=== PATIENT | female | born 1965 | race Caucasian/White ===

== ENCOUNTER 2022-02-24 02:28 | Inpatient (IN) | payer OTHER ==
[~2022-02-24] VITALS: Ht 177.8 cm; Wt 108.4 kg
--- NOTE | 2022-02-24 02:45 | NUR ---
BIBSELF C/O ABD PAIN STARTED AT 9 PM, N/V. PATIENT IS AAOX4. ABLE TO MAKE NEEDS KNOWN. VOMITED 2X. PLACED COMFORTABLY IN BED. ATTACHED TO MONITOR AND VITALS CHECKED.
[2022-02-24] MEDS ORDERED: ONDANSETRON HCL/PF 4 MG/2 ML VIAL IVP ONE (03:00)
[2022-02-24] MEDS ORDERED: MORPHINE SULFATE INJ 2 MG/ML DISP.SYRIN IV ONE (03:00)
[2022-02-24] MEDS ORDERED: IV NS 0.9% 1,000 ML BAG IV ONE (03:00)
--- NOTE | 2022-02-24 03:15 | NUR ---
PATIENT BROUGHT TO CT DEPT
[2022-02-24] MEDS ORDERED: ONDANSETRON HCL/PF 4 MG/2 ML VIAL ONE ×2 (03:36→10:47)
[2022-02-24] MEDS ORDERED: MORPHINE SULFATE INJ 4 MG/ML DISP.SYRIN ONE (03:36)
--- NOTE | 2022-02-24 03:52 | NUR ---
IV CANNULA G20 INSERTED ON RIGHT AC. BLOOD DRAWN AND SENT TO LAB
[2022-02-24 04:18] LABS: BASOPHILS % (AUTO) 0.5 % (0.0-2.0); EOSINOPHILS % (AUTO) 2.8 % (0.0-6.0); LYMPHOCYTES # (AUTO) 0.8 K/uL (0.8-4.8); LYMPHOCYTES % (AUTO) 10.2 % (20.0-44.0); MEAN CORPUSCULAR HGB CONC 32 g/dl (31.0-36.0); MEAN CORPUSCULAR VOLUME 96 fL (82-100); MONOCYTES # (AUTO) 0.6 K/uL (0.1-1.30); MONOCYTES % (AUTO) 6.7 % (2.0-12.0); NEUTROPHILS # (AUTO) 6.6 K/uL (1.8-8.9); NEUTROPHILS % (AUTO) 79.8 % (43.0-81.0); PLATELET COUNT (AUTO) 332 K/uL (150-450); RED BLOOD CELL COUNT(AUTO) 2.13 MIL/uL (4.0-5.2); WHITE BLOOD COUNT (AUTO) 8.2 K/uL (4.3-11.0)
[2022-02-24 04:28] LABS: HEMATOCRIT 20 % (33-45)
[2022-02-24 04:29] LABS: HEMOGLOBIN 6.5 g/dL (11.5-14.8)
[2022-02-24 04:34] LABS: ALANINE AMINOTRANSFERASE 18 U/L (12-78); ALBUMIN 3.4 g/dL (3.4-5.0); ALKALINE PHOSPHATASE 118 U/L (46-116); ASPARTATE AMINOTRANSFERASE 21 U/L (15-37); BILIRUBIN,DIRECT 0.1 mg/dL (0.0-0.2); BILIRUBIN,TOTAL 0.3 mg/dL (0.2-1.0); CALCIUM, SERUM 8.5 mg/dL (8.5-10.1); CARBON DIOXIDE 22 mmol/L (21-32); CHLORIDE 108 mmol/L (98-107); CREATININE 3.1 mg/dL (0.6-1.3); GLUCOSE 150 mg/dL (74-106); LIPASE 225 U/L (73-393); POTASSIUM 5.1 mmol/L (3.5-5.1); SODIUM SERUM 140 mmol/L (136-145); TOTAL PROTEIN, SERUM 7.1 g/dL (6.4-8.2); UREA NITROGEN, BLOOD 25 mg/dL (7-18)
--- NOTE | 2022-02-24 04:50 | NUR ---
URINE SPECIMEN SENT.
[2022-02-24 05:37] LABS: BILIRUBIN,URINE NEGATIVE (NEGATIVE); COLOR,URINE YELLOW (YELLOW); LEUKOCYTE ESTERASE ,URINE MODERATE (NEGATIVE); NITRITE, URINE NEGATIVE (NEGATIVE); PROTEIN,URINE TRACE mg/dl (NEGATIVE); UGLUCOSE NEGATIVE (NEGATIVE); UROBILINOGEN,URINE 0.2 EU/dL (0.2)
[2022-02-24 07:08] LABS: BACTERIA,URINE Few /HPF (None Seen); SQUAMOUS EPITHELIAL CELL,UR Moderate /HPF (None Seen)
--- NOTE | 2022-02-24 07:41 | NUR ---
REPORT GIVEN TO CIARA BALDERAS
[2022-02-24] MEDS ORDERED: Z GUARD REMEDY 4 OZ OINT TP PRN (08:30)
[2022-02-24] MEDS ORDERED: ONDANSETRON HCL/PF 4 MG/2 ML VIAL IVP PRN (08:30)
[2022-02-24] MEDS ORDERED: MAGNESIUM HYDROXIDE 30 ML UDC PO PRN (08:30)
[2022-02-24] MEDS ORDERED: MAG HYDROX/AL HYDROX/SIMETH 30 ML UDC PO PRN (08:30)
[2022-02-24] MEDS ORDERED: QUET25TA PO (08:57)
[2022-02-24] MEDS ORDERED: LAMO100T17 PO (08:57)
[2022-02-24] MEDS ORDERED: APIX5TAB PO (08:57)
[2022-02-24] MEDS ORDERED: DEXTROSE 50%-WATER 50 ML DISP.SYRIN IV PRN (09:00)
[2022-02-24] MEDS ORDERED: CEFTRIAXONE 1 G in IV D5W 50 ML IV SCH (09:00)
[2022-02-24] MEDS ORDERED: INSULIN REGULAR, HUMAN 100 UNIT/ML 3 ML VIAL SQ PRN (09:00)
[2022-02-24 09:16] LABS: LYMPHOCYTES % (MANUAL) 11 % (16-48); MONOCYTES % (MANUAL) 4 % (0-11.0); NEUTROPHILS % (MANUAL) 85 (42-76)
[2022-02-24 10:01] LABS: IRON, SERUM 23 ug/dl (50-175); TOTAL IRON BINDING CAPACITY 238 ug/dl (250-450)
--- NOTE | 2022-02-24 10:12 | NUR ---
GOT BED 304-2
[2022-02-24 10:13] LABS: FERRITIN 55 ng/mL (8-388)
--- NOTE | 2022-02-24 10:45 | NUR ---
REPORT GIVEN TO VERENICE URBINA FOR ROSIO
[2022-02-24] MEDS ORDERED: PANTOPRAZOLE 40 MG VIAL ONE (10:47)
[2022-02-24] MEDS: PANTOPRAZOLE 40 MG VIAL IV SCH ×2 (10:58→16:46)
--- NOTE | 2022-02-24 11:03 | NUR ---
TRANSFERRED TO BED 304-2 IN STABLE CONDITION
--- NOTE | 2022-02-24 11:15 | NUR ---
RN NOTE RECEIVED PT FROM ER ON GURDAI. SHERRIE ENDORSED TRANSFER REPORT. PT CAN MAKE NEEDS KNOWN. PT AWAKE, A/OX4. NO SIGNS OF RESPIRATORY DISTRESS OR SOB NOTED. ON RA. TELE READING SR 63. IV IN RIGHT AC 20G INTACT AND PATENT. PT CURRENTLY STATES SHE HAS PAIN IN ABDOMEN 01/25. WILL ADMIN PAIN MEDICATION. SAFETY CHECKS IN PLACE: BED LOCKED, BED LOWEST POSITION, SIDE RAILS X2, CALL LIGHT WITHIN REACH. WILL CONTINUE TO MONITOR.
[2022-02-24] MEDS: CEFTRIAXONE 2 G in IV D5W 100 ML IV SCH (11:38)
[2022-02-24] MEDS: MORPHINE SULFATE INJ 4 MG/ML DISP.SYRIN IV PRN ×2 (11:39→16:45)
[2022-02-24] MEDS: BLOOD SUGAR DIAGNOSTIC 1 EACH STRIP IN SCH ×3 (12:01→22:00)
[2022-02-24 13:07] VITALS: BP 117/62
[2022-02-24 14:56] VITALS: BP 113/58
[2022-02-24 15:25] VITALS: BP 106/59
[2022-02-24 16:31] VITALS: BP 116/66
--- NOTE | 2022-02-24 18:41 | NUR ---
RN CLOSING NOTE PT IN BED AWAKE. A/OX4. NO SIGNS OF RESPIRATORY DISTRESS OR SOB NOTED. STABLE ON RA. TELE MONITOR READING SR 87. IV RIGHT AC 20G INTACT AND PATENT. BLOOD TRANSFUSION HAS ENDED, NO TRANSFUSION REACTION. NO C/O PAIN AT THIS TIME, CONTROLLED WITH LAST DOSE OF MORPHINE. PT CALM AND COOPERATIVE. ALL SCHEDULED MEDS GIVEN. ALL NEEDS ATTENDED TO. SAFETY CHECKS IN PLACE: BED LOCKED, BED IN LOWEST POSITION, CALL LIGHT WITHIN REACH. WILL ENDORSE TO SUPERVISOR POLICY CHANGE CLERKS NURSE FOR ROSIO.
--- NOTE | 2022-02-24 19:48 | NUR ---
SECURITY GUARDS DISPATCHER OPENING NOTES: RECEIVED PATIENT AWAKE IN BED, BED IN LOW POSITION CALL LIGHTS WITHIN REACH, NO COMPLAIN OF PAIN AND DISCOMFORT AT THIS TIME, ON ROOM AIR SATURATING WELL,NO SOB WAS OBSERVED, PATIENT IS A/O4 AMBULATORY WITH SUPERVISION, REMIND PATIENT TO USE CALL LIGHTS WHEN NEEDED ASSISTANCE, IV LINE AT RAC#20SL, ON TELE [id number] NO SYMPTOMS WAS OBSERVED, , PATIENT KEPT CLEAN AND DRY ALL NEEDS MET, WILL CONTINUE TO MONITOR.
[2022-02-24 20:00] VITALS: BP 120/69
[2022-02-24] MEDS ORDERED: diphenhydrAMINE HCL 50 MG/ML VIAL IV ONE (20:30)
[2022-02-24] MEDS: ACETAMINOPHEN 325 MG TABLET PO PRN (20:33)
--- NOTE | 2022-02-24 20:42 | NUR ---
RN NOTES: PATIENT WAS NOTED WITH GENERALIZED REDNESS AND COMPLAINS OF ITCHINESS, FEVER AT 101, O2 SATURATION AT 93% ON ROOM AIR, PATIENT IS S/P BLOOD TRANSFUSION, FINISHED AT 1759, CALLED LYNNETTE COOL AND ORDERED BENADRYL 25MG IV PUSH ONE TIME, AND MONITOR, NOTED AND CARRY OUT, TYLENOL 650MG PRN FOR FEVER, GIVEN, OBSERVED PATIENT BY INITIALLY DRINKING WATER NO DIFFICULTY OF SWALLOWING WAS OBSERVED, ICE PACK GIVEN ON BILATERAL ARMPIT, TOLD KIARA CARLTON TO GIVE SPONGE BATH FOR FEVER, ONGOING WILL CONTINUE TO MONITOR AND TO CHECK V/S AFTER 30 MINUTES FOR INTERVENTIONS RESPONSE., WILL CONTINUE TO MONITOR.
[2022-02-24] MEDS: ZOLPIDEM TARTRATE 5 MG TABLET PO PRN (22:36)
--- NOTE | 2022-02-24 22:50 | NUR ---
RN NOTES; BLOOD SUGAR -99 NO INSULIN GIVEN PER SLIDING SCALE
[2022-02-25] VITALS: BP 116/67
[2022-02-25 00:04] VITALS: BP 116/67
[2022-02-25] MEDS ORDERED: FAMOTIDINE/PF INJ 20 MG/2 ML VIAL IV ONE (05:00)
[2022-02-25] MEDS ORDERED: diphenhydrAMINE HCL 50 MG/ML VIAL IV ONE ×2 (05:00→12:00)
[2022-02-25] MEDS: ACETAMINOPHEN 325 MG TABLET PO PRN (05:08)
--- NOTE | 2022-02-25 05:29 | NUR ---
RN NOTES: PATIENT CALLED AND COMPLAIN OF GENERALIZED REDNESS AND ITCHINESS ALL OVER THE BODY WITH MILD PAIN, V/S ARE WITHIN NORMAL RANGE, NO FEVER AT 98.3 NOTIFY FACTORY PROCESS WORKERS CATQALAN AND ORDER BENADRYL 50MG IVP ONE TIME AND PEPCID 20MG IVP ONE TIME NOTED AND CARRY OUT.
[2022-02-25 06:30] LABS: EOSINOPHILS % (AUTO) 2.2 % (0.0-6.0); HEMATOCRIT 25 % (33-45); HEMOGLOBIN 7.9 g/dL (11.5-14.8); LYMPHOCYTES # (AUTO) 0.4 K/uL (0.8-4.8); LYMPHOCYTES % (AUTO) 3.9 % (20.0-44.0); MEAN CORPUSCULAR HGB CONC 32 g/dl (31.0-36.0); MEAN CORPUSCULAR VOLUME 94 fL (82-100); MONOCYTES # (AUTO) 0.3 K/uL (0.1-1.30); MONOCYTES % (AUTO) 3.3 % (2.0-12.0); NEUTROPHILS # (AUTO) 9.1 K/uL (1.8-8.9); NEUTROPHILS % (AUTO) 90.6 % (43.0-81.0); PLATELET COUNT (AUTO) 347 K/uL (150-450); RED BLOOD CELL COUNT(AUTO) 2.63 MIL/uL (4.0-5.2)
[2022-02-25 06:57] LABS: CALCIUM, SERUM 7.6 mg/dL (8.5-10.1); CREATININE 3.4 mg/dL (0.6-1.3); MAGNESIUM 2.2 mg/dL (1.8-2.4); POTASSIUM 5.5 mmol/L (3.5-5.1)
[2022-02-25] MEDS: BLOOD SUGAR DIAGNOSTIC 1 EACH STRIP IN SCH ×3 (07:05→17:26)
--- NOTE | 2022-02-25 07:05 | NUR ---
CIARA NOTES: BLOOD SUGAR 209/ 8 UNITS INSULIN GIVEN PER SLIDING SCALE Addendum: 02/25/22 at 0706 by OBED MCKEON RN CIRAA NOTES: WRONG POSTING
--- NOTE | 2022-02-25 07:07 | NUR ---
RN NOTES: BLOOD SUGAR -106/ NO INSULIN GIVEN PER SLIDING SCALE
--- NOTE | 2022-02-25 07:26 | NUR ---
SENIOR SUPPLY CHAIN ANALYST CLOSING NOTES: PATIENT SLEEP IN BED COMFORTABLY, AROUSABLE TO VERBAL STIMULI, BED IN LOW POSITION CALL LIGHTS WITHIN REACH, NO COMPLAIN OF PAIN AND DISCOMFORT AT THIS TIME ON TELE MONITOR- SR65, PATIENT IS STILL MONITOR FOR DELAY TRANSFUSION REACTION ENDORSE TO AM NURSE, PATIENT KEPT CLEAN AND DRY ALL NEEDS MET ENDORSE TO INCOMING SHIFT.
--- NOTE | 2022-02-25 07:27 | NUR ---
RN OPENING NOTE RECEIVED PATIENT SLEEPING IN BED, EASILY AROUSED. NO SIGNS OF ACUTE RESPIRATORY DISTRESS NOTED. ON O2 @ 2LPM VIA N/C, NO SOB NOTED, BREATHING EVEN AND UNLABORED, SPO2 @99%. NOTED WITH IV ACCESS ON RIGHT AC #20G, INTACT AND PATENT SALINE LOCKED. PATIENT STILL NOTED WITH SLIGHT GENERALIZED BODY REDNESS. SAFETY MEASURE IN PLACE. BED IN LOWEST AND LOCKED POSITION, SIDE RAILS UP X2, CALL LIGHT PLACED WITHIN EASY REACH. WILL CONTINUE TO MONITOR PATIENT.
[2022-02-25 08:00] VITALS: BP 100/55
[2022-02-25] MEDS: PANTOPRAZOLE 40 MG VIAL IV SCH ×2 (08:32→17:41)
[2022-02-25] MEDS: CEFTRIAXONE 2 G in IV D5W 100 ML IV SCH (10:27)
[2022-02-25] MEDS: MORPHINE SULFATE INJ 4 MG/ML DISP.SYRIN IV PRN (10:41)
[2022-02-25] MEDS: IV NS 0.9% 1,000 ML IV PRN (11:29)
--- NOTE | 2022-02-25 12:00 | NUR ---
RN NOTE PATIENT STILL WITH C/O ITCHINESS. JANNIE KIMBLE, DNP MADE AWARE, RECEIVED NEW ORDER FOR BENADRYL 25 MG IVP X1 AND HYDROXYZINE 50 MG TID, ORDERS NOTED AND CARRIED OUT. PATIENT MADE AWARE OF NEW ORDERS. APPRECIATIVE.
[2022-02-25] MEDS: hydrOXYzine PAMOATE 25 MG CAPSULE PO SCH ×2 (13:29→21:58)
[2022-02-25 16:00] VITALS: BP 95/56
--- NOTE | 2022-02-25 18:43 | NUR ---
TESTS SUPERINTENDENT CLOSING NOTE PATIENT IN BED, AWAKE. A/OX4. NO S/S OF RESPIRATORY DISTRESS OR SOB NOTED. ON RA. TELE MONITOR READING SR 79 . IV ACCESS TO RIGHT AC 20G INTACT AND PATENT. NO C/O PAIN OR DISCOMFORT AT THIS TIME. ALL CARE, AND MEDS GIVEN ON TIMELY MANNER. ALL NEEDS ATTENDED. BED LOCKED, IN LOW POSITION, CALL LIGHT WITHIN REACH. WILL ENDORSE PT'S CARE TO ONCOMING SHIFT NURSE .
--- NOTE | 2022-02-25 19:30 | NUR ---
CASING WORKER NOTES SR-79 ON TELE MONITOR.RECEIVED ON BED A/O X3,WATCHING TV PROGRAM,BREATHING REGULAR,NOT IN ANY FORM OF RESPIRATORY DISTRESS.COMMENTED SHE FEELS BETTER THAN LAST NIGHT.ITCHINESS IMPROVED.COLOR IMPROVED.PRESENT IVF NS AT 100ML/HR RATE IN PROGRESS ON RIGHT AC SALINE LOCK VIA IV PUMP.CALL LIGHT IN REACH,NEEDS ANTICIPATED.
[2022-02-25 20:00] VITALS: BP 119/53
[2022-02-25] MEDS: ZOLPIDEM TARTRATE 5 MG TABLET PO PRN (23:22)
--- NOTE | 2022-02-25 23:22 | NUR ---
GRAIN DRIER OPERATOR NOTES C/O INSOMNIA,AMBIEN 5MG PO GIVEN PER PATIENT REQUEST.
[2022-02-26] VITALS (12 sets, daily range): BP systolic 93–116; BP diastolic 42–76
[2022-02-26] MEDS: ACETAMINOPHEN 325 MG TABLET PO PRN (05:26)
--- NOTE | 2022-02-26 05:26 | NUR ---
GRAVEL HAULER NOTES AWAKE THIS TIME.ORAL TEMP OF 99,TYLENOL 650MG PO GIVEN PER PATIENT REQUEST.
[2022-02-26 06:09] LABS: CALCIUM, SERUM 7.6 mg/dL (8.5-10.1); CREATININE 3.3 mg/dL (0.6-1.3); POTASSIUM 4.3 mmol/L (3.5-5.1)
[2022-02-26] MEDS: hydrOXYzine PAMOATE 25 MG CAPSULE PO SCH ×3 (06:23→22:13)
--- NOTE | 2022-02-26 06:50 | NUR ---
SWITCH MAKER NOTES FAIRLY RESTED AT NIGHT,GENERALIZED BODY ITCHINESS IMPROVED WITH VISTARIL,SLEEP WELL,IVF INFUSING WELL ON LEFT AC SALINE LOCK.D/C PLANNING WITH HOME HEALTH.CALL LIGHT IN REACH,NEEDS ATTENDED.
[2022-02-26 07:10] LABS: BASOPHILS % (AUTO) 0.2 % (0.0-2.0); HEMATOCRIT 22 % (33-45); LYMPHOCYTES # (AUTO) 0.7 K/uL (0.8-4.8); LYMPHOCYTES % (AUTO) 11.7 % (20.0-44.0); MEAN CORPUSCULAR HGB CONC 32 g/dl (31.0-36.0); MEAN CORPUSCULAR VOLUME 93 fL (82-100); MONOCYTES # (AUTO) 0.4 K/uL (0.1-1.30); NEUTROPHILS # (AUTO) 4.4 K/uL (1.8-8.9); NEUTROPHILS % (AUTO) 74.1 % (43.0-81.0); PLATELET COUNT (AUTO) 296 K/uL (150-450); RED BLOOD CELL COUNT(AUTO) 2.31 MIL/uL (4.0-5.2)
--- NOTE | 2022-02-26 07:20 | NUR ---
RN OPENING NOTE RECEIVED PATIENT AWAKE IN BED, A/O X4, VERBALLY RESPONSIVE, NO SIGNS OF ACUTE RESPIRATORY DISTRESS NOTED. CURRENTLY ON ROOM AIR, NO SOB NOTED, BREATHING EVEN AND UNLABORED. NOTED WITH IV ACCESS ON RIGHT AC #20G, INTACT AND PATENT WITH NS @100ML/HR RUNNING. PATIENT DENIES ANY PAIN AT THIS TIME. SAFETY MEASURE IN PLACE. BED IN LOWEST AND LOCKED POSITION, SIDE RAILS UP X2, CALL LIGHT PLACED WITHIN EASY REACH. WILL CONTINUE TO MONITOR PATIENT.
[2022-02-26 07:49] LABS: HEMOGLOBIN 6.9 g/dL (11.5-14.8)
[2022-02-26] MEDS: PANTOPRAZOLE 40 MG VIAL IV SCH ×2 (08:06→17:05)
[2022-02-26 09:20] LABS: HEMOGLOBIN 6.7 g/dL (11.5-14.8)
--- NOTE | 2022-02-26 09:30 | NUR ---
RN NOTES INFORMED JANNIE KIMBLE DNP REGARDING PATIENT'S HGB (6.7) AND HCT (21) RESULTS. AWAITING ORDERS.
[2022-02-26] MEDS: IV NS 0.9% 1,000 ML IV PRN (09:41)
[2022-02-26] MEDS: CEFTRIAXONE 2 G in IV D5W 100 ML IV SCH (11:28)
--- NOTE | 2022-02-26 12:00 | NUR ---
RN NOTE RECEIVED ORDER FROM JANNIE KIMBLE TO GIVE 1 UNIT PRBC AND 1 UNIT FFP FOLLOWED BY LASIX 40 MG IVP X1. ORDER NOTED AND CARRIED OUT.
[2022-02-26] MEDS ORDERED: ACETAMINOPHEN 325 MG TABLET PO ONE (15:30)
[2022-02-26] MEDS ORDERED: diphenhydrAMINE HCL 50 MG/ML VIAL IV ONE (15:30)
--- NOTE | 2022-02-26 15:45 | NUR ---
RN NOTES BLOOD TRANSFUSION OF 1 UNIT PRBC STARTED. VITAL SIGNS TAKEN AND RECORDED. WILL CONTINUE TO MONITOR PATIENT FOR ANY ADVERSE REACTIONS.
--- NOTE | 2022-02-26 18:41 | NUR ---
RN NOTE BLOOD TRANSFUSION OF 1 UNIT PRBC DONE. NO A/R NOTED AT THIS TIME. PATIENT WAS PRE MEDICATED WITH TYLENOL 650 MG PO AND BENADRYL 25 MG IVP PRIOR TRANSFUSION. VITAL SIGNS TAKEN, WNL. AFEBRILE AT THIS TIME. WILL CONTINUE TO MONITOR PATIENT.
--- NOTE | 2022-02-26 19:10 | NUR ---
RN CLOSING NOTE PATIENT RESTING IN BED, EASILY AROUSED. A/O X4, VERBALLY RESPONSIVE. NO SIGNS OF ACUTE DISTRESS NOTED. S/P BLOOD TRANSFUSION OF 1 UNIT PRBC, NO A/R NOTED AT THIS TIME. REMAINS STABLE IN ROOM AIR, NO SOB NOTED, BREATHING EVEN AND UNLABORED. NO C/O PAIN. IV ACCESS ON LEFT AC #20G, INTACT AND PATENT WITH NS @ 100 ML/HR RUNNING. SAFETY MEASURES MAINTAINED. BED IN LOWEST AND LOCKED POSITION, SIDE RAILS UP X2, CALL LIGHT AND TABLE WITHIN EASY REACH. WILL ENDORSE TO NEXT SHIFT FOR CONTINUITY OF CARE.
--- NOTE | 2022-02-26 19:30 | NUR ---
SALES REPRESENTATIVE FACILITY SERVICES OPENING NOTE RECEIVED PATIENT IN BED WITH EYES CLOSED, EASY TO AROUSE. NO S/S OF APPARENT DISTRESS IN ROOM AIR. NO C/O AT THIS TIME. FOR PLASMA TRANSFUSION-- WILL TRANSFUSE. TELE MONITOR READING SR WITH 74 BPM. NO FLUIDS RUNNING FOR NOW. RE-ORIENTED AND ENCOURAGED WITH THE USE OF CALL LIGHT. SAFETY IN PLACE. WILL CONTINUE WITH PLAN OF CARE FOR PATIENT.
--- NOTE | 2022-02-26 19:52 | NUR ---
lab called saying the blood bank person going to lunch for 45 min. and I can get the plasma 45 minutes from now.
--- NOTE | 2022-02-26 21:22 | NUR ---
FFT started at this time. Starting rate 75mls/hr. v/s as follows: 106/64, hr- 64, t-98.0, saturation 98% in room air, rr-18. will monitor. and re-check v/s 15 min from now.
--- NOTE | 2022-02-26 21:43 | NUR ---
15 min through transfusion. no s/s of reaction. v/s as follows: 116/76, hr-70, sat-99, rr-18, t-98.2. rate increased to 125ml/hr. will continue to monitor. will re-check v/s after 60 min.
[2022-02-26] MEDS: ZOLPIDEM TARTRATE 5 MG TABLET PO PRN (22:16)
--- NOTE | 2022-02-26 22:16 | NUR ---
healthcare administration internship note patient irritable and asking for her sleeping medication. to quote "I'm sick of this" "I need my sleeping medication". Sydniien given PRN as ordered per patient request.
--- NOTE | 2022-02-26 22:39 | NUR ---
60 min through transfusion. patient sleeping, easy to arouse. no s/s of adverse reaction. v/s as follows: 104/54, hr-76, 99% sat. t-99.0 f, rr-18. will re-check after FFT transfusion is done. rate 120ml/hr.
[2022-02-27] VITALS: BP 102/51
[2022-02-27] MEDS ORDERED: diphenhydrAMINE HCL 25 MG CAPSULE PO ONE ×2 (00:30→06:00)
--- NOTE | 2022-02-27 00:30 | NUR ---
FFT transfusion ended exactly 2329. only c/o itching.. per patient the VIstaril doesn't work and Benadryl works for her better. Messaged agricultural extension officer Doctor José Miguel and ordered a ONE TIME order of Benadryl 25 po. Order carried out. will monitor. V/S stable.
[2022-02-27] MEDS: hydrOXYzine PAMOATE 25 MG CAPSULE PO SCH ×3 (06:00→21:22)
--- NOTE | 2022-02-27 06:06 | NUR ---
PLANT PROTECTION GUARD NOTE- NON ADMIN scheduled 0600 Vistaril refused by patient and outbound call center representative Doctor José Miguel ordered ONE TIME order of benadryl 25 mg PO again per patient request. order carried out.
[2022-02-27 06:07] LABS: BASOPHILS % (AUTO) 0.1 % (0.0-2.0); EOSINOPHILS % (AUTO) 8.7 % (0.0-6.0); HEMATOCRIT 22 % (33-45); HEMOGLOBIN 7.2 g/dL (11.5-14.8); LYMPHOCYTES # (AUTO) 0.7 K/uL (0.8-4.8); LYMPHOCYTES % (AUTO) 12.2 % (20.0-44.0); MEAN CORPUSCULAR HGB CONC 33 g/dl (31.0-36.0); MEAN CORPUSCULAR VOLUME 91 fL (82-100); MONOCYTES # (AUTO) 0.4 K/uL (0.1-1.30); MONOCYTES % (AUTO) 7.8 % (2.0-12.0); NEUTROPHILS # (AUTO) 3.8 K/uL (1.8-8.9); NEUTROPHILS % (AUTO) 71.2 % (43.0-81.0); PLATELET COUNT (AUTO) 269 K/uL (150-450); RED BLOOD CELL COUNT(AUTO) 2.41 MIL/uL (4.0-5.2); WHITE BLOOD COUNT (AUTO) 5.3 K/uL (4.3-11.0)
[2022-02-27 06:17] LABS: CALCIUM, SERUM 7.6 mg/dL (8.5-10.1); POTASSIUM 4.4 mmol/L (3.5-5.1)
--- NOTE | 2022-02-27 07:11 | NUR ---
DRY HOUSE TENDER CLOSING NOTE ALL NEEDS ATTENDED. REPORT GIVEN TO CIARA GARCIA FOR CONTINUITY OF CARE.
--- NOTE | 2022-02-27 07:26 | NUR ---
BIOPSYCHOLOGIST OPENING NOTES RECEIVED PATIENT AWAKE IN BED WATCHING TV. A/OX4, ABLE TO MAKE NEEDS KNOWN, DENIES PAIN OR ANY DISCOMFORTS AT THIS TIME. ON ROOM AIR, BREATHING EVEN AND UNLABORED. TELE-MONITOR READS V-PACING WITH HR OF 80 BPM AT THIS TIME, NO C/O CARDIAC DISTRESS VOICED AT THIS TIME. IV ACCESS ON LAC #20G INTACT WITH IVF OF NS@ 100ML/HR INFUSING WELL. SAFETY PRECAUTIONS MAINTAINED: BED LOCKED IN LOW POSITION, SIDE RAILX2, CALL LIGHT WITHIN EASY REACH, BED ALARM ON. WILL CONTINUE TO MONITOR PT.
--- NOTE | 2022-02-27 07:50 | NUR ---
WOUND CARE CONSULT: PT EATING BREAKFAST AT THIS TIME. REVIEWED CHART, NURSING DOCUMENTATION AND PHOTO WHICH INDICATES RASH TO LEFT BREASTFOLD, PRESENT ON ADMISSION. RECOMMENDATIONS MADE FOR SKIN PROTECTION. DISCUSSED WITH NURSING STAFF. MD IN AGREEMENT WITH PLAN OF CARE.
[2022-02-27] MEDS: PANTOPRAZOLE 40 MG VIAL IV SCH ×2 (08:48→16:40)
[2022-02-27] MEDS: CLOTRIMAZOLE 1% 15 GM TUBE TP SCH ×2 (09:04→16:41)
[2022-02-27 09:58] VITALS: BP 143/70
[2022-02-27] MEDS: CEFTRIAXONE 2 G in IV D5W 100 ML IV SCH (11:36)
[2022-02-27 13:17] VITALS: BP 113/62
[2022-02-27 17:49] VITALS: BP 119/54
--- NOTE | 2022-02-27 18:42 | NUR ---
REAL ESTATE SALES SUPERVISOR CLOSING NOTES PATIENT IN BED WATCHING TV AT THIS TIME. A/OX4, ABLE TO MAKE NEEDS KNOWN. TOLERATING ROOM AIR WITH NO SOB NOTED DURING SHIFT. TELE-MONITOR SHOWS NSR WITH HR ON 80'S AT THIS TIME, NO C/O CARDIAC DISTRESS VOICED. IV ACCESS ON LAC #20G INTACT WITH IVF OF NS @ 100ML/HR INFUSING WELL, NO S/S OF INFILTRATION AT SITE NOTED. ALL NEEDS AND CARE ATTENDED WELL. SAFETY PRECAUTIONS MAINTAINED: BED LOCKED IN LOW POSITION, SIDE-RAILS IP X2, CALL LIGHT WITHIN EASY REACH, BED ALARM ON. WILL ENDORSE ROSIO TO CPR AMBULANCE DRIVER NURSE.
--- NOTE | 2022-02-27 19:45 | NUR ---
AP PROCESSOR OPENING NOTES RECEIVED PATIENT AWAKE IN BED WATCHING TV. A/OX4, ABLE TO MAKE NEEDS KNOWN,ON ROOM AIR JUN WELL NO SIGN SOB/DISTRESS NOTED.BREATHING EVEN AND UNLABORED, IV ACCESS ON LAC #20G INTACT WITH IVF OF NS@ 100ML/HR INFUSING WELL. SAFETY PRECAUTIONS MAINTAINED: BED LOCKED IN LOW POSITION, SIDE RAILX2, CALL LIGHT WITHIN EASY REACH, BED ALARM ON. WILL CONTINUE TO MONITOR.
[2022-02-27 20:00] VITALS: BP 117/62
--- NOTE | 2022-02-27 22:45 | NUR ---
RN NOTE RECEIVED REPORT FROM CIARA STATON FOR ROSIO.
--- NOTE | 2022-02-27 22:51 | NUR ---
ENGINE LATHE OPERATOR OPENING NOTE PT RECEIVED IN BED, AWAKE, A&O X4, CALM, COOPERATIVE. CURRENTLY ON RA WITH NO S/S OF RESP DISTRESS, NO COUGH OR SOB, NON-LABORED AND EQUAL BREATHING. PT ATTACHED TO EXTERNAL MONITOR, SR WITH HR OF 73. IV ACCESS ON RAC 20G, INTACT AND PATENT, FLUSHES EASILY WITH NO RESISTANCE, NS INFUSING AT 100 ML/HR. BED IN LOWEST POSITION, CALL LIGHT WITHIN REACH, SIDE RAILS UP X3. WILL CONTINUE TO MONITOR THROUGHOUT THE NIGHT.
[2022-02-28] VITALS: BP 126/65
[2022-02-28] MEDS: ZOLPIDEM TARTRATE 5 MG TABLET PO PRN (01:22)
[2022-02-28 04:00] VITALS: BP 119/60
[2022-02-28] MEDS: IV NS 0.9% 1,000 ML IV PRN (04:32)
[2022-02-28] MEDS: hydrOXYzine PAMOATE 25 MG CAPSULE PO SCH ×4 (06:00→09:12)
--- NOTE | 2022-02-28 06:12 | NUR ---
RN NOTE PT DID NOT WANT HYDROXIZINE
[2022-02-28 07:05] LABS: CALCIUM, SERUM 8.1 mg/dL (8.5-10.1); CREATININE 2.7 mg/dL (0.6-1.3); POTASSIUM 4.2 mmol/L (3.5-5.1)
--- NOTE | 2022-02-28 07:28 | NUR ---
SPRAY MAKER CLOSING NOTE PT RECEIVED IN BED, AWAKE, A&O X4, CALM, COOPERATIVE. CURRENTLY ON RA WITH NO S/S OF RESP DISTRESS, NO COUGH OR SOB, NON-LABORED AND EQUAL BREATHING. PT ATTACHED TO EXTERNAL MONITOR, SR WITH HR OF 83 IV ACCESS ON RAC 20G, INTACT AND PATENT, FLUSHES EASILY WITH NO RESISTANCE, NS INFUSING AT 100 ML/HR. BED IN LOWEST POSITION, CALL LIGHT WITHIN REACH, SIDE RAILS UP X3. WILL ENDORSE TO DAYSHIFT NURSE TO CONTINUE CARE.
--- NOTE | 2022-02-28 07:40 | NUR ---
ORACLE APPLICATIONS ANALYST OPENING NOTE: PT RECEIVED IN BED, ASLEEP, EASILY ROUSED, A&O X4, ABLE TO MAKE NEEDS KNOWN. ON RA WITH NO S/S OF SOB AND ACUTE DISTRESS. PT ATTACHED TO EXTERNAL MONITOR, SR WITH HR OF 81. IV ACCESS ON RAC 20G, INTACT AND PATENT, RUNNING NS AT 100 ML/HR. HOB ELEVATED. BED LOCKED IN LOWEST POSITION, CALL LIGHT AND TABLE WITHIN REACH, SIDE RAILS UP X3, WILL CONTINUE TO MONITOR DURING SHIFT.
[2022-02-28 08:00] VITALS: BP 121/60
[2022-02-28 08:48] LABS: BASOPHILS % (AUTO) 0.3 % (0.0-2.0); EOSINOPHILS % (AUTO) 11.4 % (0.0-6.0); HEMATOCRIT 22 % (33-45); HEMOGLOBIN 7.2 g/dL (11.5-14.8); LYMPHOCYTES # (AUTO) 1.3 K/uL (0.8-4.8); LYMPHOCYTES % (AUTO) 26.4 % (20.0-44.0); MEAN CORPUSCULAR HGB CONC 33 g/dl (31.0-36.0); MEAN CORPUSCULAR VOLUME 92 fL (82-100); MONOCYTES # (AUTO) 0.4 K/uL (0.1-1.30); MONOCYTES % (AUTO) 9.1 % (2.0-12.0); NEUTROPHILS # (AUTO) 2.6 K/uL (1.8-8.9); NEUTROPHILS % (AUTO) 52.8 % (43.0-81.0); PLATELET COUNT (AUTO) 288 K/uL (150-450); RED BLOOD CELL COUNT(AUTO) 2.42 MIL/uL (4.0-5.2); WHITE BLOOD COUNT (AUTO) 4.9 K/uL (4.3-11.0)
[2022-02-28] MEDS: PANTOPRAZOLE 40 MG VIAL IV SCH ×2 (09:02→18:43)
[2022-02-28] MEDS: CLOTRIMAZOLE 1% 15 GM TUBE TP SCH ×2 (09:03→18:44)
[2022-02-28] MEDS ORDERED: FERR325T23 PO (09:47)
[2022-02-28] MEDS ORDERED: PANT40TA2 PO (09:47)
[2022-02-28] MEDS: CEFTRIAXONE 2 G in IV D5W 100 ML IV SCH (11:05)
[2022-02-28 12:00] VITALS: BP 124/68
[2022-02-28] MEDS ORDERED: hydrOXYzine PAMOATE 25 MG CAPSULE PO SCH (15:30)
[2022-02-28 16:00] VITALS: BP 118/67
--- NOTE | 2022-02-28 19:08 | NUR ---
PROJECT MANAGEMENT INSTRUCTORSHOP TECH NOTES: PT IS STABLE AT DISCHARGE, VITALS WNL. VALUABLES RECONCILED, SULLIVAN ($803) GIVEN BACK TO PT, SULLIVAN COUNTED WITH KIARA PAIZ WITNESS, PT AND 2 STAFF SIGNED VALUABLES FORM. DISCHARGE INSTRUCTIONS DISCUSSED AND SIGNED BY PATIENT AND RN, PT VERBALIZED UNDERSTANDING TO TEACHING. PT REFUSED TO TAKE PHOTO OF BREAST FOLDS AND LEG SCRATCHES, RN EXPLAINED RATIONALE, PT ACKNOWLEDGED AND DECLINED. IV ACCESS, TELE MONITOR AND ID BAND REMOVED. PT ESCORTED BY STAFF TO LOBBY VIA WHEELCHAIR AND SPOUSE MET WITH PRIVATE CAR.
== END 2022-02-28 19:00 | disposition home health service (06) | DRG 253 ==
LOC: ER 02:45 → TELE 10:36
PROVIDERS: ADMIT Nurse Practitioner Acute Care
PROC: 30233N1 Transfusion of Nonautologous Red Blood Cells into Peripheral Vein, Percutaneous Approach (ICD-10-PCS; principal; 2022-02-24)
PROC: 30233L1 Transfusion of Nonautologous Fresh Plasma into Peripheral Vein, Percutaneous Approach (ICD-10-PCS; 2022-02-26)
PROC: 30233K1 Transfusion of Nonautologous Frozen Plasma into Peripheral Vein, Percutaneous Approach (ICD-10-PCS; 2022-02-26)
DX: K92.2 Gastrointestinal hemorrhage, unspecified (principal); N17.0 Acute kidney failure with tubular necrosis; N39.0 Urinary tract infection, site not specified; D63.8 Anemia in other chronic diseases classified elsewhere; D50.9 Iron deficiency anemia, unspecified; B96.89 Other specified bacterial agents as the cause of diseases classified elsewhere; E11.9 Type 2 diabetes mellitus without complications; E66.9 Obesity, unspecified; Z20.822 Contact with and (suspected) exposure to COVID-19; Z88.6 Allergy status to analgesic agent; Z88.0 Allergy status to penicillin; Z91.013 Allergy to seafood; Z68.36 Body mass index [BMI] 36.0-36.9, adult; Z86.718 Personal history of other venous thrombosis and embolism; Z79.01 Long term (current) use of anticoagulants; E87.5 Hyperkalemia; K44.9 Diaphragmatic hernia without obstruction or gangrene; K86.1 Other chronic pancreatitis; Z98.890 Other specified postprocedural states; N26.1 Atrophy of kidney (terminal)
CPT/HCPCS: 36415; 71045-TC; 76770-TC; 80048-TC; 80061-TC; 80076-TC; 81001; 82728-TC; 82962-TC; 83540-TC; 83690-TC; 83735-TC; 84100-TC; 84484-TC; 85025-TC; 85027-TC; 85730-TC; 86850-TC; 87081-TC; 87086-TC; 94799-TC; C9113; C9803; G0378; J0696; J1200; J1815; J2270; J2405; J3490; J7030; J7040; J7050; J7060; P9016; P9017; Q0163; Q0177

== ENCOUNTER 2022-04-29 20:23 | Emergency (ER) | payer OTHER ==
[~2022-04-29] VITALS: Ht 177.8 cm; Wt 108.4 kg
[~2022-04-29 20:23] MED LIST: FERR325T23 PO; LAMO100T17 PO; PANT40TA2 PO; QUET25TA PO
--- NOTE | 2022-04-29 20:50 | NUR ---
TO ER BED 3. BIBRA 839 FROM HOME FOR C/O LLQ ABD PAIN AND N/V. PT IS ALERT AND ORIENTED. RR EVEN AND NON LABORED. CONNECTED TO MONITOR. AWAITING MD PATINO
--- NOTE | 2022-04-29 21:10 | NUR ---
PT TAKEN TO CT SCAN
[2022-04-29] MEDS ORDERED: ONDANSETRON HCL/PF 4 MG/2 ML VIAL IVP ONE (21:30)
[2022-04-29] MEDS ORDERED: KETOROLAC TROMETHAMINE INJ 30 MG/ML VIAL IV ONE (21:30)
[2022-04-29] MEDS ORDERED: KETOROLAC TROMETHAMINE 15 MG/ML VIAL ONE (21:31)
[2022-04-29] MEDS ORDERED: ONDANSETRON HCL/PF 4 MG/2 ML VIAL ONE (21:31)
--- NOTE | 2022-04-29 21:35 | NUR ---
PT RETURNED FROM CT SCAN
--- NOTE | 2022-04-29 21:41 | NUR ---
IV LINE ESTABLISHED, RAC20G
--- NOTE | 2022-04-29 21:42 | NUR ---
BLOOD COLLECTED AND SENT TO LAB
[2022-04-29 21:48] LABS: BASOPHILS % (AUTO) 0.5 % (0.0-2.0); EOSINOPHILS % (AUTO) 1.2 % (0.0-6.0); HEMATOCRIT 34 % (33-45); HEMOGLOBIN 11.1 g/dL (11.5-14.8); LYMPHOCYTES # (AUTO) 1.4 K/uL (0.8-4.8); LYMPHOCYTES % (AUTO) 14.6 % (20.0-44.0); MEAN CORPUSCULAR HGB CONC 33 g/dl (31.0-36.0); MEAN CORPUSCULAR VOLUME 86 fL (82-100); MONOCYTES # (AUTO) 0.8 K/uL (0.1-1.30); MONOCYTES % (AUTO) 8.1 % (2.0-12.0); NEUTROPHILS # (AUTO) 7.4 K/uL (1.8-8.9); NEUTROPHILS % (AUTO) 75.6 % (43.0-81.0); PLATELET COUNT (AUTO) 324 K/uL (150-450); RED BLOOD CELL COUNT(AUTO) 3.93 MIL/uL (4.0-5.2); WHITE BLOOD COUNT (AUTO) 9.7 K/uL (4.3-11.0)
[2022-04-29 21:52] LABS: CALCIUM, SERUM 9.1 mg/dL (8.5-10.1); CREATININE 3.1 mg/dL (0.6-1.3)
[2022-04-29 21:58] LABS: BILIRUBIN,DIRECT 0.3 mg/dL (0.0-0.2); BILIRUBIN,TOTAL 0.7 mg/dL (0.2-1.0); TOTAL PROTEIN, SERUM 8.1 g/dL (6.4-8.2)
[2022-04-29] MEDS ORDERED: MORPHINE SULFATE INJ 2 MG/ML DISP.SYRIN IV ONE (22:30)
--- NOTE | 2022-04-29 22:30 | NUR ---
COVID SWAB COLLECTED
[2022-04-29] MEDS ORDERED: MORPHINE SULFATE INJ 4 MG/ML DISP.SYRIN ONE (22:32)
--- NOTE | 2022-04-29 22:52 | NUR ---
cm, justine: [phone] Chin: [phone]
[2022-04-30 00:45] VITALS: BP 139/94
--- NOTE | 2022-04-30 01:45 | NUR ---
PATIENT IS ACCEPTED AT [facility] BY DR GARAY. GOING TO RM 402. # FOR REPORT: [phone] [facility] ETA: 30-40 MIN ER REGISTRAR AT [facility], DEBORAH DIAZ: [phone]
[2022-04-30] MEDS ORDERED: MORPHINE SULFATE INJ 2 MG/ML DISP.SYRIN ONE (01:56)
[2022-04-30] MEDS ORDERED: MORPHINE SULFATE INJ 4 MG/ML DISP.SYRIN ONE (01:56)
[2022-04-30] MEDS ORDERED: MORPHINE SULFATE INJ 2 MG/ML DISP.SYRIN IV ONE (02:00)
--- NOTE | 2022-04-30 02:11 | NUR ---
[facility] AT BEDSIDE FOR TRANSPORTATION
--- NOTE | 2022-04-30 02:11 | NUR ---
REPORT GIVEN TO DONNIE URBINA AT [facility] FOR ROSIO
== END 2022-04-30 02:50 | disposition short-term general hospital (02) ==
LOC: ER 20:32
DX: R10.32 Left lower quadrant pain (principal); R10.13 Epigastric pain; R74.8 Abnormal levels of other serum enzymes; Z20.822 Contact with and (suspected) exposure to COVID-19; R35.0 Frequency of micturition; D64.9 Anemia, unspecified; Z88.6 Allergy status to analgesic agent; Z88.0 Allergy status to penicillin; Z91.013 Allergy to seafood; I10 Essential (primary) hypertension; E11.9 Type 2 diabetes mellitus without complications; Z79.899 Other long term (current) drug therapy
CPT/HCPCS: 99284; 74176; 96374; 96375; 87426; 85025; 80048; 83690; 80076; 36415; J2270 ×3; J2405; J1885; C9803

== ENCOUNTER 2025-02-17 23:51 | Inpatient (IN) | payer OTHER ==
[~2025-02-17] VITALS: Ht 172.7 cm; Wt 108.9 kg
[2025-02-18 00:47] LABS: PLATELET COUNT (AUTO) 353 K/uL (150-450); RED BLOOD CELL COUNT(AUTO) 2.52 MIL/uL (4.0-5.2); RED CELL DISTRIBUTION WIDTH 19.9 % (11.5-15.0); WHITE BLOOD COUNT (AUTO) 8.1 K/uL (4.3-11.0)
[2025-02-18 00:53] LABS: CALCIUM, SERUM 8.5 mg/dL (8.5-10.1); CREATININE 1.9 mg/dL (0.6-1.3); SODIUM SERUM 139.0 mmol/L (136-145); UREA NITROGEN, BLOOD 29.0 mg/dL (7-18)
[2025-02-18 00:58] LABS: INR 0.97 (0.91-1.10)
[2025-02-18 01:00] LABS: ASPARTATE AMINOTRANSFERASE 11.0 U/L (15-37); TOTAL PROTEIN, SERUM 6.8 g/dL (6.4-8.2)
[2025-02-18] MEDS ORDERED: ONDANSETRON HCL/PF 4 MG/2 ML VIAL IVP PRN (01:30)
[2025-02-18] MEDS ORDERED: Z GUARD REMEDY 4 OZ OINT TP PRN (01:30)
[2025-02-18] MEDS ORDERED: ARIP10TA57 PO (03:02)
[2025-02-18] MEDS ORDERED: CRAN250C PO (03:02)
[2025-02-18] MEDS ORDERED: MULT1CAP44 PO (03:02)
[2025-02-18] MEDS ORDERED: GABA-532 PO (03:02)
[2025-02-18] MEDS ORDERED: DOCU100C36 PO (03:02)
[2025-02-18] MEDS ORDERED: METF500S7 PO (03:02)
[2025-02-18] MEDS ORDERED: ASCO500C18 PO (03:02)
[2025-02-18] MEDS ORDERED: FERR220S2 PO (03:02)
[2025-02-18] MEDS ORDERED: LAMO25TA16 PO (03:02)
[2025-02-18 03:46] LABS: LYMPHOCYTES % (MANUAL) 11 % (16-48); MONOCYTES % (MANUAL) 6 % (0-11.0); NEUTROPHILS % (MANUAL) 83 (42-76); PLATELET ESTIMATE ADEQUATE
[2025-02-18 04:15] VITALS: BP 121/60; TEMP 98.1; O2SAT 95
[2025-02-18] MEDS ORDERED: DEXTROSE 50%-WATER 50 ML DISP.SYRIN IV PRN (04:30)
[2025-02-18 04:56] LABS: PLATELET COUNT (AUTO) 340 K/uL (150-450); RED BLOOD CELL COUNT(AUTO) 2.49 MIL/uL (4.0-5.2); RED CELL DISTRIBUTION WIDTH 20.5 % (11.5-15.0); WHITE BLOOD COUNT (AUTO) 7.5 K/uL (4.3-11.0)
[2025-02-18 05:14] LABS: PHOSPHORUS 4.0 mg/dL (2.5-4.9)
[2025-02-18 05:56] LABS: LYMPHOCYTES % (MANUAL) 24 % (16-48); NEUTROPHILS % (MANUAL) 68 (42-76)
[2025-02-18 05:57] LABS: EOSINOPHILS % (MANUAL) 2 % (0-4); MONOCYTES % (MANUAL) 6 % (0-11.0); PLATELET ESTIMATE ADEQUATE
[2025-02-18 08:00] VITALS: BP 110/73; TEMP 98.6; O2SAT 96
[2025-02-18] MEDS: BLOOD SUGAR DIAGNOSTIC 1 EACH STRIP IN SCH (08:00)
[2025-02-18] MEDS ORDERED: DOCU100T2 PO (08:32)
[2025-02-18] MEDS ORDERED: ACET325T53 PO (08:32)
[2025-02-18] MEDS ORDERED: INSU100V42 SQ (08:32)
[2025-02-18] MEDS ORDERED: MAG30ORA PO (08:32)
[2025-02-18] MEDS ORDERED: ONDA-97 PO (08:32)
[2025-02-18] MEDS ORDERED: METF-442 PO (08:32)
[2025-02-18] MEDS ORDERED: ACET-73 PO (08:32)
[2025-02-18] MEDS ORDERED: MAGN400O6 PO (08:32)
[2025-02-18] MEDS ORDERED: PANT40TA49 PO (08:32)
[2025-02-18] MEDS ORDERED: BISA10SU11 RC (08:32)
[2025-02-18] MEDS ORDERED: HYDR-4303 PO (08:32)
[2025-02-18] MEDS ORDERED: QUET100T PO (08:32)
[2025-02-18] MEDS: DOCUSATE SODIUM 100 MG CAPSULE PO SCH (09:00)
[2025-02-18 09:45] LABS: CALCIUM, SERUM 8.5 mg/dL (8.5-10.1); CREATININE 1.9 mg/dL (0.6-1.3); SODIUM SERUM 140.0 mmol/L (136-145); UREA NITROGEN, BLOOD 29.0 mg/dL (7-18)
[2025-02-18 09:49] LABS: IRON, SERUM 10.0 ug/dl (50-175)
[2025-02-18] MEDS: FERROUS SULFATE UDC 300 MG/5 ML UDC PO SCH (09:52)
[2025-02-18] MEDS: ACETAMINOPHEN 325 MG TABLET PO ONE (09:53)
[2025-02-18] MEDS: PANTOPRAZOLE 40 MG TABLET.DR PO SCH (09:53)
[2025-02-18] MEDS: ASCORBIC ACID 500 MG TABLET PO SCH (09:53)
[2025-02-18] MEDS: MULTIVITAMINS,THERAGRAN 1 UDTAB TABLET PO SCH (09:54)
[2025-02-18] MEDS: ARIPIPRAZOLE 5 MG TABLET PO SCH (09:55)
[2025-02-18] MEDS: SODIUM ZIRCONIUM CYCLOSILICATE 10 GM POWD.PACK PO ONE (10:33)
[2025-02-18 12:00] VITALS: BP 116/75; TEMP 97.7; O2SAT 96
[2025-02-18] MEDS: INSULIN REGULAR, HUMAN 100 UNIT/ML 3 ML VIAL SQ PRN (12:10)
[2025-02-18 14:44] LABS: CALCIUM, SERUM 8.4 mg/dL (8.5-10.1); CREATININE 1.9 mg/dL (0.6-1.3); SODIUM SERUM 140.0 mmol/L (136-145); UREA NITROGEN, BLOOD 27.0 mg/dL (7-18)
[2025-02-18] MEDS: CYANOCOBALAMIN 1,000 MCG/ML VIAL IM SCH (15:19)
[2025-02-18] MEDS: SOD FERRIC GLUC 125 MG in IV NS 0.9% 100 ML IV SCH (15:32)
[2025-02-18 16:00] VITALS: BP 122/60; TEMP 98.4; O2SAT 95
[2025-02-18] MEDS: CLOTRIMAZOLE 1% 15 GM TUBE TP SCH (16:34)
[2025-02-18 20:00] VITALS: BP 119/56; TEMP 98.2; O2SAT 95
[2025-02-18] MEDS: GABAPENTIN 100 MG CAPSULE PO SCH (21:42)
[2025-02-18] MEDS: QUETIAPINE FUMARATE 25 MG TABLET PO SCH (21:42)
[2025-02-19] VITALS (10 sets, daily range): BP systolic 107–124; BP diastolic 49–79; TEMP 97.5–99.1; O2SAT 95–96
[2025-02-19 06:29] LABS: ASPARTATE AMINOTRANSFERASE 10.0 U/L (15-37); CALCIUM, SERUM 8.5 mg/dL (8.5-10.1); CREATININE 1.8 mg/dL (0.6-1.3); PHOSPHORUS 4.0 mg/dL (2.5-4.9); SODIUM SERUM 141.0 mmol/L (136-145); TOTAL PROTEIN, SERUM 6.8 g/dL (6.4-8.2); UREA NITROGEN, BLOOD 27.0 mg/dL (7-18)
[2025-02-19 06:30] LABS: CREATINE KINASE, TOTAL 28.0 U/L (26-192)
[2025-02-19 06:31] LABS: PLATELET COUNT (AUTO) 369 K/uL (150-450); RED BLOOD CELL COUNT(AUTO) 2.47 MIL/uL (4.0-5.2); RED CELL DISTRIBUTION WIDTH 20.1 % (11.5-15.0); WHITE BLOOD COUNT (AUTO) 7.3 K/uL (4.3-11.0)
[2025-02-19] MEDS: LEVOTHYROXINE SODIUM 25 MCG TABLET PO SCH (08:49)
[2025-02-19] MEDS: AMIODARONE 150 MG in IV D5W 100 ML IV ONE (11:07)
[2025-02-19 12:04] LABS: EOSINOPHILS % (MANUAL) 5 % (0-4); LYMPHOCYTES % (MANUAL) 17 % (16-48); MONOCYTES % (MANUAL) 2 % (0-11.0); NEUTROPHILS % (MANUAL) 76 (42-76); PLATELET ESTIMATE ADEQUATE
[2025-02-19] MEDS: AMIODARONE 450 MG in IV D5W 241 ML IV PRN (12:45)
[2025-02-19] MEDS: FERROUS SULFATE (325 MG) 325 MG/TAB TABLET PO SCH (16:47)
[2025-02-20] VITALS (18 sets, daily range): BP systolic 110–152; BP diastolic 62–82; TEMP 97–98.7; O2SAT 91–97
[2025-02-20 06:31] LABS: CALCIUM, SERUM 8.3 mg/dL (8.5-10.1); CREATININE 2.0 mg/dL (0.6-1.3); SODIUM SERUM 142.0 mmol/L (136-145); UREA NITROGEN, BLOOD 27.0 mg/dL (7-18)
[2025-02-20 07:01] LABS: PLATELET COUNT (AUTO) 358 K/uL (150-450); RED BLOOD CELL COUNT(AUTO) 3.10 MIL/uL (4.0-5.2); RED CELL DISTRIBUTION WIDTH 24.5 % (11.5-15.0); WHITE BLOOD COUNT (AUTO) 10.6 K/uL (4.3-11.0)
[2025-02-20 07:13] LABS: ASPARTATE AMINOTRANSFERASE 13.0 U/L (15-37); PHOSPHORUS 4.7 mg/dL (2.5-4.9); TOTAL PROTEIN, SERUM 6.9 g/dL (6.4-8.2)
[2025-02-20 08:09] LABS: PTH, INTACT 45 pg/mL (15-65)
[2025-02-20 11:10] LABS: OCCULT BLOOD STOOL NEGATIVE (NEGATIVE)
[2025-02-21] VITALS (8 sets, daily range): BP systolic 128–145; BP diastolic 71–85; TEMP 97.6–98.6; O2SAT 95–100
[2025-02-21 06:38] LABS: PLATELET COUNT (AUTO) 344 K/uL (150-450); RED BLOOD CELL COUNT(AUTO) 3.42 MIL/uL (4.0-5.2); RED CELL DISTRIBUTION WIDTH 24.8 % (11.5-15.0); WHITE BLOOD COUNT (AUTO) 9.1 K/uL (4.3-11.0)
[2025-02-21 07:02] LABS: CALCIUM, SERUM 8.5 mg/dL (8.5-10.1); CREATININE 1.8 mg/dL (0.6-1.3); SODIUM SERUM 137.0 mmol/L (136-145); UREA NITROGEN, BLOOD 26.0 mg/dL (7-18)
[2025-02-21 08:54] LABS: PHOSPHORUS 4.3 mg/dL (2.5-4.9)
[2025-02-21] MEDS: AMIODARONE HCL 200 MG TABLET PO SCH (12:08)
[2025-02-22] VITALS: BP 139/86; TEMP 99.1; O2SAT 96
[2025-02-22 04:00] VITALS: BP 144/65; TEMP 98.1; O2SAT 99
[2025-02-22 08:00] VITALS: BP 126/73; TEMP 97.9; O2SAT 98
[2025-02-22] MEDS ORDERED: ANESTHESIA TRAY IN PYXIS 1 EA TRAY MC ONE (11:28)
[2025-02-22] MEDS ORDERED: MIDAZOLAM HCL 2 MG/2ML VIAL ONE (11:37)
[2025-02-22] MEDS ORDERED: ALBUTEROL SULFATE 8 GM HFA.AER.AD ONE (11:44)
[2025-02-22 12:54] VITALS: BP 135/85; TEMP 97.9; O2SAT 96
[2025-02-22 16:00] VITALS: BP 124/64; TEMP 97.7; O2SAT 99
[2025-02-22] MEDS: ACETAMINOPHEN 325 MG TABLET PO PRN (17:01)
[2025-02-22 19:42] LABS: PLATELET COUNT (AUTO) 335 K/uL (150-450); RED BLOOD CELL COUNT(AUTO) 3.23 MIL/uL (4.0-5.2); RED CELL DISTRIBUTION WIDTH 25.8 % (11.5-15.0); WHITE BLOOD COUNT (AUTO) 8.5 K/uL (4.3-11.0)
[2025-02-22 19:52] LABS: CALCIUM, SERUM 8.4 mg/dL (8.5-10.1); CREATININE 2.1 mg/dL (0.6-1.3); SODIUM SERUM 137.0 mmol/L (136-145); UREA NITROGEN, BLOOD 26.0 mg/dL (7-18)
[2025-02-22 19:55] LABS: ERYTHROCYTE SEDIMENTATION RATE 44 MM/HR (0-30); PHOSPHORUS 4.3 mg/dL (2.5-4.9)
[2025-02-22 19:58] LABS: INR 0.97 (0.91-1.10)
[2025-02-22 20:00] VITALS: BP 125/75; TEMP 98.4; O2SAT 98
[2025-02-22] MEDS ORDERED: QUETIAPINE FUMARATE 100 MG TABLET ONE (22:44)
[2025-02-22] MEDS: QUETIAPINE FUMARATE 100 MG TABLET PO SCH (22:46)
[2025-02-23] VITALS: BP 119/67; TEMP 98.7; O2SAT 95
[2025-02-23 04:00] VITALS: BP 135/74; TEMP 98.1; O2SAT 95
[2025-02-23 05:55] LABS: PLATELET COUNT (AUTO) 317 K/uL (150-450); RED BLOOD CELL COUNT(AUTO) 3.27 MIL/uL (4.0-5.2); RED CELL DISTRIBUTION WIDTH 25.5 % (11.5-15.0); WHITE BLOOD COUNT (AUTO) 7.8 K/uL (4.3-11.0)
[2025-02-23 06:00] LABS: CALCIUM, SERUM 8.7 mg/dL (8.5-10.1); CREATININE 2.1 mg/dL (0.6-1.3); SODIUM SERUM 142.0 mmol/L (136-145); UREA NITROGEN, BLOOD 28.0 mg/dL (7-18)
[2025-02-23 06:08] LABS: PHOSPHORUS 4.4 mg/dL (2.5-4.9)
[2025-02-23 08:00] VITALS: BP 137/68; TEMP 98.1; O2SAT 99
[2025-02-23] MEDS: SODIUM ZIRCONIUM CYCLOSILICATE 10 GM POWD.PACK PO SCH (08:35)
[2025-02-23] MEDS: HYDROCHLOROTHIAZIDE 25 MG TABLET PO SCH (09:59)
[2025-02-23] MEDS ORDERED: amiodarone PO (11:09)
[2025-02-23 13:45] LABS: CALCIUM, SERUM 9.0 mg/dL (8.5-10.1); CREATININE 2.0 mg/dL (0.6-1.3); SODIUM SERUM 140.0 mmol/L (136-145); UREA NITROGEN, BLOOD 26.0 mg/dL (7-18)
[2025-02-23] MEDS: SODIUM ZIRCONIUM CYCLOSILICATE 5 GM POWD.PACK PO STA (14:35)
[2025-02-23 16:00] VITALS: BP 130/65; TEMP 97.7; O2SAT 96
[2025-02-23 17:05] VITALS: BP 130/65
[2025-02-24 02:07] LABS: HEPATITIS B SURFACE AB (QUAL) Non Reactive (.)
[2025-02-24 07:09] LABS: COMPLEMENT C3, SERUM 136 mg/dL (82-167); COMPLEMENT C4, SERUM 25 mg/dL (12-38)
[2025-02-25 12:07] LABS: *ANA ANTI-CENTROMERE B AB <0.2 AI (0.0-0.9); *ANA ANTI-DNA(DS) AB, QN <1 IU/mL (0-9); *ANA ANTI-JO-1 <0.2 AI (0.0-0.9); *ANA ANTICHROMATIN ANTIBODY <0.2 AI (0.0-0.9); *ANA RNP ANTIBODIES <0.2 AI (0.0-0.9); *ANA SJOGREN'S ANTI-SS-A <0.2 AI (0.0-0.9); *ANA SJOGREN'S ANTI-SS-B <0.2 AI (0.0-0.9); *ANAANTI-SCLERODERMA-70 AB <0.2 AI (0.0-0.9); *ANASMITH AB <0.2 AI (0.0-0.9)
[2025-03-02 16:10] LABS: *SPE A/G RATIO 0.8 (0.7-1.7); *SPE ALBUMIN 2.9 g/dL (2.9-4.4); *SPE ALPHA-1-GLOBULIN 0.3 g/dL (0.0-0.4); *SPE ALPHA-2-GLOBULIN 0.8 g/dL (0.4-1.0); *SPE BETA GLOBULIN 1.0 g/dL (0.7-1.3); *SPE GLOBULIN, TOTAL 3.5 g/dL (2.2-3.9); *SPE M-SPIKE Not Observed g/dL (Not Observed); *SPE PROTEIN TOTAL 6.4 g/dL (6.0-8.5); *SPEGAMMA GLOBULIN 1.4 g/dL (0.4-1.8)
== END 2025-02-23 18:16 | DRG 663 ==
LOC: ER 23:59 → TELE1 02-18 02:05 → TELE-TD 02-19 10:42 → TELE1 02-21 10:20 → MEDSG1 02-23 09:51
PROVIDERS: ADMIT Nurse Practitioner Family; ATTEND Nurse Practitioner Family
PROC: 30233N1 Transfusion of Nonautologous Red Blood Cells into Peripheral Vein, Percutaneous Approach (ICD-10-PCS; principal; 2025-02-18)
PROC: 0DB98ZX Excision of Duodenum, Via Natural or Artificial Opening Endoscopic, Diagnostic (ICD-10-PCS; 2025-02-22)
DX: D50.9 Iron deficiency anemia, unspecified (principal); I31.39 Other pericardial effusion (noninflammatory); F25.9 Schizoaffective disorder, unspecified; I48.92 Unspecified atrial flutter; I13.0 Hypertensive heart and chronic kidney disease with heart failure and stage 1 through stage 4 chronic kidney disease, or unspecified chronic kidney disease; I50.9 Heart failure, unspecified; E11.22 Type 2 diabetes mellitus with diabetic chronic kidney disease; E03.9 Hypothyroidism, unspecified; N18.4 Chronic kidney disease, stage 4 (severe); E66.9 Obesity, unspecified; E87.5 Hyperkalemia; G89.4 Chronic pain syndrome; Z88.0 Allergy status to penicillin; E11.40 Type 2 diabetes mellitus with diabetic neuropathy, unspecified; F31.9 Bipolar disorder, unspecified; R16.1 Splenomegaly, not elsewhere classified; E21.3 Hyperparathyroidism, unspecified; Z68.36 Body mass index [BMI] 36.0-36.9, adult; E53.8 Deficiency of other specified B group vitamins; J45.909 Unspecified asthma, uncomplicated; K29.70 Gastritis, unspecified, without bleeding; Z53.20 Procedure and treatment not carried out because of patient's decision for unspecified reasons
CPT/HCPCS: 36415; 71045-TC; 76770-TC; 80048-TC; 80053-TC; 80076-TC; 82272-TC; 82378; 82550-TC; 82607-TC; 82728-TC; 82962-TC; 83540-TC; 83735-TC; 83970; 84100-TC; 84155; 84165; 84439-TC; 84443-TC; 85025-TC; 85027-TC; 85610-TC; 85652-TC; 85730-TC; 86225; 86235; 86706; 86803; 86850; 86850-TC; 86870; 86880; 86900; 86901; 86905; 86906; 87081-TC; 87340; 88305-TC; 88313-TC; 88342; 93307-TC; A4223; A6213; G0378; J0282; J1200; J1815; J2250; J2704; J2916; J3420; J3490; J7030; J7040; J7050; J7060; P9016